=== PATIENT | female | born 1945 | race Caucasian/White ===

== ENCOUNTER → 2018-11-10 | Outpatient (CLI) | payer OTHER | LOC: M.ULTRA 13:59 → M.RAD 14:30 | DX: M85.88 Other specified disorders of bone density and structure, other site (principal); N95.1 Menopausal and female climacteric states; E04.1 Nontoxic single thyroid nodule; Z88.2 Allergy status to sulfonamides; Z88.1 Allergy status to other antibiotic agents; Z88.0 Allergy status to penicillin ==

== ENCOUNTER → 2019-08-23 | Outpatient (CLI) | payer OTHER | LOC: M.RAD 14:08 | DX: M47.812 Spondylosis without myelopathy or radiculopathy, cervical region (principal); M43.13 Spondylolisthesis, cervicothoracic region; M53.82 Other specified dorsopathies, cervical region ==

== ENCOUNTER → 2019-12-27 | Outpatient (CLI) | payer OTHER | LOC: M.ULTRA 09:00 | DX: Z12.31 Encounter for screening mammogram for malignant neoplasm of breast (principal); E03.9 Hypothyroidism, unspecified; E04.2 Nontoxic multinodular goiter ==